=== PATIENT | female | born 2000 | race Caucasian/White ===

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

== ENCOUNTER → 2024-02-03 | Outpatient (CLI) | payer OTHER | LOC: M CARPUL 13:34 | PROVIDERS: ATTEND Physician Assistant | DX: R06.00 Dyspnea, unspecified (principal) ==

== ENCOUNTER → 2024-04-27 | Outpatient (CLI) | payer OTHER ==
[~2024-04-27] MED LIST: METHACHOLINE KIT (6 VIAL.NEB PREMIX) INH ONE
== END ==
LOC: M CARPUL 07:47
PROVIDERS: ATTEND Physician Assistant
DX: R06.00 Dyspnea, unspecified (principal)
CPT/HCPCS: 94070; J7674

== ENCOUNTER 2024-10-30 12:09 | Emergency (ER) | payer OTHER, SELFPAY ==
[~2024-10-30] VITALS: Ht 165.1 cm; Wt 81.4 kg
[2024-10-30 12:16] VITALS: TEMP 98.7
[2024-10-30] MEDS ORDERED: ENSKYCE (12:23)
[2024-10-30 15:00] VITALS: BP 123/72; O2SAT 99
== END 2024-10-30 15:02 | disposition home or self-care (01) ==
LOC: M ED 12:09
DX: S06.0X0A Concussion without loss of consciousness, initial encounter (principal); V00.311A Fall from snowboard, initial encounter; Y92.89 Other specified places as the place of occurrence of the external cause; Y93.23 Activity, snow (alpine) (downhill) skiing, snowboarding, sledding, tobogganing and snow tubing; Y99.9 Unspecified external cause status